=== PATIENT | female | born 2000 ===

== ENCOUNTER 2024-10-13 10:29 | Outpatient (CLI) | payer OTHER, SELFPAY ==
[2024-10-13 11:12] LABS: Amnisure Rom* Negative
[2024-10-13 11:17] LABS: Clue Cells No Clue Cells Seen (None Seen); Trichomonas No Trichomonas Seen (None Seen); Yeast No Yeast Seen (None Seen)
[2024-10-13 11:24] VITALS: BP 123/56; PULSE 88; PULSE 91; O2SAT 97
--- NOTE | 2024-10-13 11:32 | PM.OBLDTN ---
OB - Triage/Final Diagnosis Visit Information Time Seen by Provider: 11:33 Date Seen: 10/13/24 Date of evaluation: 10/13/24 Narrative: The patient is a 24 year old 2 para 1 at 33 weeks gestation who presents with concern of ROM. She woke overnight and had watery discharge that did not smell like urine. She has normal movement. No other concerns. NO contractions, bleeding. Patient is visiting family from [facility]. She flies back tomorrow. She had leaking of fluid with her first and didn't realize it. She reports otherwise normal . I do NOT have records Evaluation Laboratory results: Laboratory Tests 10/13/24 Range/Units Unknown Membrane Rupture Negative Vaginal Trichomonas No Trichomonas Seen (None Seen) Vaginal Yeast No Yeast Seen (None Seen) Vaginal Clue Cells No Clue Cells Seen (None Seen) Vital signs: Vital Signs - 24 hr 10/13/24 11:24 Pulse Rate 88 Blood Pressure 123/56 L Pulse Oximetry 97 Comments: General: resting comfortably Hear: rrr Lungs ctab Abdomen: Soft, nontender Fetus (Single) Heart Rate Baseline: 120 Business Support Associate Variability: Moderate (6-25) Monitor Accelerations: Present Monitor Decelerations: None Final Diagnosis (1) Vaginal discharge during : Status: Acute Problem details: Fortunately, amnisure and wet prep negative. No contractions. NST reactive Will discharge to home, has OB follow up later this week. Encouraged to return to care with any new concern. Total Time Spent Total Time Spent: 25
--- NOTE | 2024-10-13 12:03 | PC.OBNST ---
NST Note NST Note Start: 10/13/24 10:45 Freq: ONCE Status: Active Protocol: Document 10/13/24 12:02 ABP (Rec: 10/13/24 12:03 ABP [id number]) NST Note 2 Para (# of births) 1 EDC 11/26/24 Gestational Age In Weeks & Days 33 Weeks & 5 Days Patient Presented with Complaint(s) of Leaking fluid Reactive Yes Appropriate for Gestational Age Yes RN Rafi Barahona RN Date 10/13/24 Reactive Yes Appropriate for Gestational Age Yes GLENROY Lay RN Date 10/13/24 OB NST charge Yes Complete NST Note via Write Note Yes The provider's electronic signature indicates the NST is reactive/appropriate for gestational age. *Note to provider: If an addendum is required, open the patient's chart and click on the note under the Nurse/Allied Health tab.
== END 2024-10-13 11:30 | disposition home or self-care (01) ==
LOC: OB OUT 10:33 → OB 10:35
PROVIDERS: Visit Provider Family Medicine
DX: O47.03 False labor before 37 completed weeks of gestation, third trimester (principal); Z3A.33 33 weeks gestation of pregnancy
CPT/HCPCS: 59025; 84112; 87210; G0463